=== PATIENT | female | born 1965 | race Two or more races ===

== ENCOUNTER 2017-12-11 19:52 | Emergency (ER) | payer OTHER ==
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
[2017-12-11 20:07] VITALS: BP 155/90; PULSE 79; TEMP 98.2; BMI 27.1
[2017-12-11] MEDS ORDERED: IBUPROFEN 600 MG TABLET (FP) PO ONE ×2 (23:43→23:58)
[2017-12-11] MEDS ORDERED: diazePAM 5 MG TABLET PO ONE (23:46)
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
[2017-12-11] MEDS ORDERED: diazePAM 5 MG TABLET ONE (23:58)
== END 2017-12-12 00:19 | disposition home or self-care (01) ==
LOC: JER 19:52 → JERFT 19:52 → JER 12-12 00:19
DX: M54.2 Cervicalgia (principal); M25.512 Pain in left shoulder; V43.52XA Car driver injured in collision with other type car in traffic accident, initial encounter; Y92.488 Other paved roadways as the place of occurrence of the external cause; Y93.89 Activity, other specified
CPT/HCPCS: 72125-TC; 73030-TC-LT-FY; 73060-TC-LT-FY; 73090-TC-LT-FY; 99281-25